=== PATIENT | male | born 1940 | race Caucasian/White ===

== ENCOUNTER 2020-12-10 09:33 | Outpatient (REF) | payer MEDICARE, SELFPAY ==
[2020-12-10 11:31] LABS: Estimated Average Glucose 114 mg/dL; Hemoglobin A1c % 5.6 %
[2020-12-10 11:50] LABS: Alanine Aminotransferase 10 U/L (0-40); Alkaline Phosphatase 82 U/L (39-117); Anion Gap 14 (12-20); Aspartate Amino Transferase 20 U/L (5-37); Bilirubin Total 1.1 mg/dL (0.0-1.0); Blood Urea Nitrogen 19 mg/dL (9-16); Calcium 8.8 mg/dL (8.4-10.2); Carbon Dioxide 25 mmol/L (22-29); Chloride 107 mmol/L (96-108); Estimated Glomerular Filt Rate > 60; Glucose Fasting 109 mg/dL (60-99); Potassium 4.1 mmol/L (3.3-5.1); Sodium 142 mmol/L (135-145); Total Protein 7.2 g/dL (6.5-8.0)
[2020-12-10 12:02] LABS: Prostate Specific Antigen Scr < 0.05 ng/mL (<0.05-4.0)
== END 2020-12-10 09:34 | disposition home or self-care (01) ==
LOC: HO.HMGCLDS 09:33
PROVIDERS: PCP Internal Medicine; Visit Provider Internal Medicine
DX: I10 Essential (primary) hypertension (principal); E78.2 Mixed hyperlipidemia; R73.9 Hyperglycemia, unspecified; E53.8 Deficiency of other specified B group vitamins
CPT/HCPCS: 36415; 80053; 83036; 84153

== ENCOUNTER 2021-03-22 09:43 | Outpatient (REF) | payer MEDICARE, SELFPAY ==
[2021-03-22 12:12] LABS: Folate 19.9 ng/mL (> or = 4.0); Vitamin B12 480 pg/mL (200-900)
== END 2021-03-22 09:44 | disposition home or self-care (01) ==
LOC: HO.HMGCLDS 09:43
PROVIDERS: PCP Internal Medicine; Visit Provider Internal Medicine
DX: E53.8 Deficiency of other specified B group vitamins (principal)
CPT/HCPCS: 36415; 82607; 82746

== ENCOUNTER 2021-03-25 14:13 | Outpatient (REF) | payer MEDICARE, SELFPAY ==
--- NOTE | ~2021-03-25 | XR_ITS ---
EXAMINATION: XR ABDOMEN COMPLETE CLINICAL INDICATION: Abdominal pain COMPARISON: None TECHNIQUE: Supine and upright views of the abdomen and pelvis FINDINGS: There are no dilated loops of bowel or air-fluid levels to suggest obstruction. There is no evidence of free air. There are no calcifications in the abdomen or pelvis. There are surgical clips in the pelvis. Bony structures are unremarkable. XR/XR abdomen min 2V IMPRESSION: Surgical clips in the pelvis. No evidence of obstruction or free air.
[2021-03-25 16:28] LABS: Hematocrit 41.6 % (42-52); Hemoglobin 13.6 g/dl (14.0-18.0); Mean Corpuscular HGB Conc 32.7 g/dl (31.0-36.0); Mean Corpuscular Hemoglobin 30.3 pg (27.0-33.0); Mean Corpuscular Volume 92.7 fL (80-98); Mean Platelet Volume 11.9 fL (9.4-12.4); Platelet Count 249 X10*3/uL (160-400); Red Blood Count 4.49 X10*6/uL (4.60-5.80); Red Cell Distribution Width 11.7 % (11.0-16.0); White Blood Count 9.5 X10*3/uL (4.8-10.8)
[2021-03-25 16:29] LABS: Appearance Urine CLEAR; Color Urine YELLOW; Glucose Urine UA NEG (NEG); Leukocyte Esterase Urine NEG (NEG); Nitrite Urine NEG (NEG); Urine Blood NEG (NEG); Urine Ketones NEG (NEG); Urine Protein NEG (NEG-TRACE)
[2021-03-25 16:54] LABS: Anion Gap 13 (12-20); Blood Urea Nitrogen 23 mg/dL (9-16); Calcium 8.9 mg/dL (8.4-10.2); Carbon Dioxide 25 mmol/L (22-29); Chloride 110 mmol/L (96-108); Estimated Glomerular Filt Rate 46; Glucose Random 93 mg/dL (60-115); Potassium 4.4 mmol/L (3.3-5.1); Sodium 144 mmol/L (135-145)
== END 2021-03-25 14:14 | disposition home or self-care (01) ==
LOC: HO.HMGCX 14:13
PROVIDERS: PCP Internal Medicine; Visit Provider Internal Medicine
DX: R10.9 Unspecified abdominal pain (principal)
CPT/HCPCS: 36415; 74019; 80048; 81003; 85027

== ENCOUNTER 2021-04-01 09:30 | Outpatient (REF) | payer MEDICARE, SELFPAY ==
[2021-04-01 11:51] LABS: Anion Gap 13 (12-20); Blood Urea Nitrogen 15 mg/dL (9-16); Calcium 9.2 mg/dL (8.4-10.2); Carbon Dioxide 27 mmol/L (22-29); Chloride 110 mmol/L (96-108); Estimated Glomerular Filt Rate 48; Glucose Random 109 mg/dL (60-115); Potassium 4.5 mmol/L (3.3-5.1); Sodium 145 mmol/L (135-145)
== END 2021-04-01 09:31 | disposition home or self-care (01) ==
LOC: HO.HMGCLDS 09:30
PROVIDERS: PCP Internal Medicine; Visit Provider Internal Medicine
DX: R10.9 Unspecified abdominal pain (principal)
CPT/HCPCS: 36415; 80048

== ENCOUNTER 2021-04-22 09:24 | Outpatient (REF) | payer MEDICARE, SELFPAY ==
[2021-04-22 11:14] LABS: Hematocrit 41.2 % (42-52); Hemoglobin 13.2 g/dl (14.0-18.0); Mean Corpuscular Hemoglobin 30.1 pg (27.0-33.0); Mean Corpuscular Volume 94.1 fL (80-98); Mean Platelet Volume 11.2 fL (9.4-12.4); Platelet Count 212 X10*3/uL (160-400); Red Blood Count 4.38 X10*6/uL (4.60-5.80); Red Cell Distribution Width 12.6 % (11.0-16.0); White Blood Count 6.3 X10*3/uL (4.8-10.8)
[2021-04-22 11:46] LABS: Alanine Aminotransferase 6 U/L (0-40); Albumin Level 3.7 g/dL (3.5-5.0); Alkaline Phosphatase 77 U/L (39-117); Anion Gap 12 (12-20); Aspartate Amino Transferase 15 U/L (5-37); Bilirubin Total 0.8 mg/dL (0.0-1.0); Blood Urea Nitrogen 13 mg/dL (9-16); Calcium 9.1 mg/dL (8.4-10.2); Carbon Dioxide 29 mmol/L (22-29); Chloride 109 mmol/L (96-108); Cholesterol 110 mg/dL; Estimated Glomerular Filt Rate 57; Glucose Fasting 108 mg/dL (60-99); HDL Cholesterol 43 mg/dL; LDL Cholesterol Calculated 55 mg/dl; Potassium 5.2 mmol/L (3.3-5.1); Sodium 145 mmol/L (135-145); Total Protein 6.7 g/dL (6.5-8.0); Triglycerides 61 mg/dL
[2021-04-22 12:09] LABS: Folate 15.1 ng/mL (> or = 4.0); Vitamin B12 404 pg/mL (200-900)
== END 2021-04-22 09:25 | disposition home or self-care (01) ==
LOC: HO.HMGCLDS 09:24
PROVIDERS: PCP Internal Medicine; Visit Provider Internal Medicine
DX: E53.8 Deficiency of other specified B group vitamins (principal); E78.2 Mixed hyperlipidemia; I10 Essential (primary) hypertension; R73.9 Hyperglycemia, unspecified
CPT/HCPCS: 36415; 80053; 80061; 82607; 82746; 85027

== ENCOUNTER 2021-06-29 14:21 | Outpatient (REF) | payer MEDICARE, SELFPAY ==
[2021-06-29 16:46] LABS: Alanine Aminotransferase 9 U/L (0-40); Alkaline Phosphatase 85 U/L (39-117); Anion Gap 12 (12-20); Aspartate Amino Transferase 18 U/L (5-37); Bilirubin Total 0.5 mg/dL (0.0-1.0); Blood Urea Nitrogen 18 mg/dL (9-16); Calcium 9.2 mg/dL (8.4-10.2); Carbon Dioxide 27 mmol/L (22-29); Chloride 107 mmol/L (96-108); Estimated Glomerular Filt Rate > 60; Glucose Random 79 mg/dL (60-115); Potassium 4.8 mmol/L (3.3-5.1); Sodium 141 mmol/L (135-145); Total Protein 7.1 g/dL (6.5-8.0)
[2021-06-29 17:20] LABS: Vitamin B12 384 pg/mL (200-900)
== END 2021-06-29 14:22 | disposition home or self-care (01) ==
LOC: HO.HMGCLDS 14:21
PROVIDERS: PCP Internal Medicine; Visit Provider Internal Medicine
DX: E53.8 Deficiency of other specified B group vitamins (principal); E78.2 Mixed hyperlipidemia; I10 Essential (primary) hypertension; R73.9 Hyperglycemia, unspecified
CPT/HCPCS: 36415; 80053; 82607; 82746

== ENCOUNTER 2021-11-29 11:21 | Outpatient (REF) | payer MEDICARE, SELFPAY ==
[2021-11-29 14:01] LABS: Hematocrit 48.5 % (42.0-52.0); Hemoglobin 15.6 g/dl (14.0-18.0); Mean Corpuscular HGB Conc 32.2 g/dl (31.0-36.0); Mean Corpuscular Volume 93.3 fL (80.0-98.0); Mean Platelet Volume 11.7 fL (9.4-12.4); Platelet Count 203 X10*3/uL (160-400); Red Cell Distribution Width 12.2 % (11.0-16.0); White Blood Count 9.1 X10*3/uL (4.8-10.8)
[2021-11-29 14:12] LABS: Alanine Aminotransferase 8 U/L (0-40); Alkaline Phosphatase 80 U/L (39-117); Anion Gap 13 (12-20); Aspartate Amino Transferase 18 U/L (5-37); Bilirubin Total 0.9 mg/dL (0.0-1.0); Blood Urea Nitrogen 18 mg/dL (9-16); Calcium 9.3 mg/dL (8.4-10.2); Carbon Dioxide 28 mmol/L (22-29); Chloride 104 mmol/L (96-108); Cholesterol 113 mg/dL; Estimated Glomerular Filt Rate 56; Glucose Fasting 117 mg/dL (60-99); HDL Cholesterol 38 mg/dL; LDL Cholesterol Calculated 62 mg/dl; Potassium 5.6 mmol/L (3.3-5.1); Sodium 139 mmol/L (135-145); Total Protein 7.3 g/dL (6.5-8.0); Triglycerides 67 mg/dL
[2021-11-29 14:37] LABS: Prostate Specific Antigen Scr < 0.05 ng/mL (<0.05-4.0)
[2021-11-29 15:12] LABS: Vitamin B12 406 pg/mL (200-900)
== END 2021-11-29 11:22 | disposition home or self-care (01) ==
LOC: HO.HMGCLDS 11:21
PROVIDERS: PCP Internal Medicine; Visit Provider Internal Medicine
DX: Z00.00 Encounter for general adult medical examination without abnormal findings (principal); Z12.5 Encounter for screening for malignant neoplasm of prostate; E53.8 Deficiency of other specified B group vitamins; R73.9 Hyperglycemia, unspecified; E78.2 Mixed hyperlipidemia; I10 Essential (primary) hypertension; E87.5 Hyperkalemia; C61 Malignant neoplasm of prostate
CPT/HCPCS: 36415; 80053; 80061; 82607; 84153; 85027

== ENCOUNTER 2021-12-02 13:27 | Outpatient (REF) | payer MEDICARE, SELFPAY ==
[2021-12-02 16:30] LABS: Potassium 4.7 mmol/L (3.3-5.1)
[2021-12-02 17:09] LABS: Vitamin B12 381 pg/mL (200-900)
== END 2021-12-02 13:28 | disposition home or self-care (01) ==
LOC: HO.HMGCLDS 13:27
PROVIDERS: Visit Provider Internal Medicine
DX: E87.5 Hyperkalemia (principal); E53.8 Deficiency of other specified B group vitamins; R73.9 Hyperglycemia, unspecified; E78.2 Mixed hyperlipidemia; I10 Essential (primary) hypertension
CPT/HCPCS: 36415; 82607; 84132

== ENCOUNTER 2022-07-04 11:49 | Outpatient (REF) | payer MEDICARE, SELFPAY ==
[2022-07-04 14:15] LABS: MANUAL DIFF FLAG NO
[2022-07-04 14:25] LABS: Basophils Percent Auto 0.4 % (0-2); Eosinophils Absolute Auto 0.1 X10*3/uL (0.0-0.4); Eosinophils Percent Auto 2.1 % (0-4); Hematocrit 46.5 % (42.0-52.0); Hemoglobin 15.1 g/dl (14.0-18.0); Imm Gran Abs Auto 0.02 X10*3/uL (0.00-0.03); Imm Gran Pct Auto 0.3 % (0.0-0.4); Lymphocytes Absolute Auto 1.6 X10*3/uL (1.2-4.9); Lymphocytes Percent Auto 23.5 % (20-40); Mean Corpuscular HGB Conc 32.5 g/dl (31.0-36.0); Mean Corpuscular Hemoglobin 30.3 pg (27.0-33.0); Mean Corpuscular Volume 93.2 fL (80.0-98.0); Mean Platelet Volume 11.7 fL (9.4-12.4); Monocytes Absolute Auto 0.6 X10*3/uL (0.1-1.2); Monocytes Percent Auto 8.9 % (2-11); Neutrophils Absolute Auto 4.4 x10*3/uL (2.0-8.3); Neutrophils Percent Auto 64.8 % (45-73); Platelet Count 179 X10*3/uL (160-400); Red Blood Count 4.99 X10*6/uL (4.60-5.80); Red Cell Distribution Width 12.1 % (11.0-16.0); White Blood Count 6.8 X10*3/uL (4.8-10.8)
[2022-07-04 14:46] LABS: Estimated Average Glucose 114 mg/dL; Hemoglobin A1c % 5.6 %
[2022-07-04 14:50] LABS: Alanine Aminotransferase 7 U/L (0-40); Alkaline Phosphatase 75 U/L (39-117); Anion Gap 15 (12-20); Aspartate Amino Transferase 18 U/L (5-37); Blood Urea Nitrogen 16 mg/dL (9-16); Carbon Dioxide 26 mmol/L (22-29); Chloride 105 mmol/L (96-108); Cholesterol 108 mg/dL; Estimated Glomerular Filt Rate > 60; Glucose Fasting 104 mg/dL (60-99); HDL Cholesterol 43 mg/dL; LDL Cholesterol Calculated 52 mg/dl; Potassium 4.9 mmol/L (3.3-5.1); Sodium 141 mmol/L (135-145); Total Protein 6.9 g/dL (6.5-8.0); Triglycerides 68 mg/dL
[2022-07-04 15:25] LABS: PSA,Total (Free>4and<10) < 0.05 ng/mL (0.00-4.00); TSH reflex Free T4 1.72 uIU/mL (0.32-4.0)
[2022-07-04 15:34] LABS: Folate 19.7 ng/mL (> or = 4.0); Vitamin B12 365 pg/mL (200-900)
== END 2022-07-04 11:50 | disposition home or self-care (01) ==
LOC: HO.HMGCLDS 11:49
PROVIDERS: PCP Internal Medicine; Visit Provider Internal Medicine
DX: Z12.5 Encounter for screening for malignant neoplasm of prostate (principal); E53.8 Deficiency of other specified B group vitamins; E78.2 Mixed hyperlipidemia; R73.9 Hyperglycemia, unspecified; R63.4 Abnormal weight loss; C61 Malignant neoplasm of prostate; I10 Essential (primary) hypertension
CPT/HCPCS: 36415; 80053; 80061; 82607; 82746; 83036; 84153; 84443; 85025

== ENCOUNTER 2022-09-30 09:43 | Outpatient (REF) | payer MEDICARE, SELFPAY ==
[2022-09-30 11:09] LABS: MANUAL DIFF FLAG NO
[2022-09-30 11:15] LABS: Basophils Percent Auto 0.4 % (0-2); Eosinophils Absolute Auto 0.2 X10*3/uL (0.0-0.4); Eosinophils Percent Auto 2.6 % (0-4); Hematocrit 45.8 % (42.0-52.0); Hemoglobin 15.1 g/dl (14.0-18.0); Imm Gran Abs Auto 0.02 X10*3/uL (0.00-0.03); Imm Gran Pct Auto 0.3 % (0.0-0.4); Lymphocytes Absolute Auto 2.4 X10*3/uL (1.2-4.9); Lymphocytes Percent Auto 31.3 % (20-40); Mean Corpuscular Hemoglobin 30.3 pg (27.0-33.0); Mean Platelet Volume 11.5 fL (9.4-12.4); Monocytes Absolute Auto 0.7 X10*3/uL (0.1-1.2); Monocytes Percent Auto 8.7 % (2-11); Neutrophils Absolute Auto 4.3 x10*3/uL (2.0-8.3); Neutrophils Percent Auto 56.7 % (45-73); Platelet Count 174 X10*3/uL (160-400); Red Blood Count 4.98 X10*6/uL (4.60-5.80); Red Cell Distribution Width 12.2 % (11.0-16.0); White Blood Count 7.7 X10*3/uL (4.8-10.8)
== END 2022-09-30 09:44 | disposition home or self-care (01) ==
LOC: HO.HMGCLDS 09:43
PROVIDERS: PCP Internal Medicine; Visit Provider Internal Medicine
DX: Z13.89 Encounter for screening for other disorder (principal)
CPT/HCPCS: 36415; 85025

== ENCOUNTER 2023-02-13 09:20 | Outpatient (REF) | payer MEDICARE, SELFPAY ==
[2023-02-13 11:16] LABS: MANUAL DIFF FLAG NO
[2023-02-13 11:40] LABS: Basophils Percent Auto 0.5 % (0-2); Eosinophils Absolute Auto 0.2 X10*3/uL (0.0-0.4); Eosinophils Percent Auto 2.4 % (0-4); Hematocrit 46.3 % (42.0-52.0); Hemoglobin 14.8 g/dl (14.0-18.0); Imm Gran Abs Auto 0.02 X10*3/uL (0.00-0.03); Imm Gran Pct Auto 0.3 % (0.0-0.4); Lymphocytes Percent Auto 26.4 % (20-40); Mean Corpuscular Hemoglobin 29.8 pg (27.0-33.0); Mean Corpuscular Volume 93.2 fL (80.0-98.0); Mean Platelet Volume 11.6 fL (9.4-12.4); Monocytes Absolute Auto 0.7 X10*3/uL (0.1-1.2); Monocytes Percent Auto 9.4 % (2-11); Neutrophils Absolute Auto 4.6 x10*3/uL (2.0-8.3); Platelet Count 168 X10*3/uL (160-400); Red Blood Count 4.97 X10*6/uL (4.60-5.80); Red Cell Distribution Width 12.3 % (11.0-16.0); White Blood Count 7.6 X10*3/uL (4.8-10.8)
[2023-02-13 12:08] LABS: Alanine Aminotransferase 10 U/L (0-40); Albumin Level 3.8 g/dL (3.5-5.0); Alkaline Phosphatase 77 U/L (39-117); Anion Gap 11 (12-20); Aspartate Amino Transferase 20 U/L (5-37); Bilirubin Total 0.7 mg/dL (0.0-1.0); Blood Urea Nitrogen 18 mg/dL (9-16); Calcium 8.8 mg/dL (8.4-10.2); Carbon Dioxide 28 mmol/L (22-29); Chloride 108 mmol/L (96-108); Estimated Glomerular Filt Rate > 60; Glucose Random 119 mg/dL (60-115); Sodium 142 mmol/L (135-145); Total Protein 6.6 g/dL (6.5-8.0)
[2023-02-13 12:36] LABS: Folate 19.3 ng/mL (> or = 4.0); Vitamin B12 347 pg/mL (200-900)
== END 2023-02-13 09:21 | disposition home or self-care (01) ==
LOC: HO.HMGCLDS 09:20
PROVIDERS: PCP Internal Medicine; Visit Provider Internal Medicine
DX: E53.8 Deficiency of other specified B group vitamins (principal); E78.2 Mixed hyperlipidemia; I10 Essential (primary) hypertension
CPT/HCPCS: 36415; 80053; 82607; 82746; 85025

== ENCOUNTER 2023-04-16 09:15 | Outpatient (AMB) | payer MEDICARE, SELFPAY ==
[2023-04-16 09:29] VITALS: BP 126/74; PULSE 58; O2SAT 98; BMI 23.0
--- NOTE | 2023-04-16 09:29 | A.OFFPC_ITS ---
Vital Signs 04/16/23 09:29 Height 5 ft 8.9 in Weight 155 lb 2 oz BMI 23.0 BP 126/74 Blood Pressure Location Rt brachial Position Sitting Pulse 58 Pulse Source Pulse Oximeter Pulse Oximetry (%) 98 Oxygen Delivery Method Room Air Intake Visit Reasons: R ear discomfort on going issue Allergies No Known Allergies Allergy (Verified 04/16/23 09:30) Medication List - Last Reconciled 04/16/23 by Aretha Pope MD atorvastatin 80 mg PO DAILY lisinopril 10 mg PO DAILY metoprolol succinate ER 50 mg PO DAILY pantoprazole 40 mg PO DAILY tamsulosin 0.4 mg PO BID Tobacco use date assessed: 04/16/23 Last assessed Fall Risk: 04/16/23 Dental Screening Dental Screen Date: 04/16/23 Did you have a dental problem in the last 6 months where you did not have access to dental care?: No Was dental information given to patient?: No HPI R ear discomfort on going issue HPI Details Pt c/o R ear discomfort and feeling of blocked ear for 2 weeks. Pt noti damon some brown discharge from R ear canal. Pt denies fever, chills PFSH Medical History Abdominal pain Annual physical exam Carotid stenosis, bilateral DJD (degenerative joint disease) Hyperglycemia Hyperkalemia Hyperlipidemia LLQ abdominal pain Prostate cancer Surgical History H/O colonoscopy H/O prostatectomy History of esophagogastroduodenoscopy (EGD) Social History Housing: House Alcohol intake: current Alcohol intake frequency: holidays/special occasions only Patient Tobacco Use Status: Never used Tobacco e-Cigarette/Vaping Use: Never Used Second Hand Smoke Exposure: No service: No Current occupational status: retired Cognitive needs: No Hearing needs: No Vision needs: Yes Questionnaire Thrive Questionnaire Date Thrive assessed: 10/03/22 AUDIT C Alcohol Use Questionnaire (AUDIT-C) 1. How often do you have a drink containing alcohol?: Never 3. How often do you have six or more drinks on one occasion?: Never Total Score: 0 Score Reviewed/Action Taken: Yes CARMELLA-7 AMB Questionnaire CARMELLA-7 Date CARMELLA - 7 assessed: 10/03/22 Source: Developed by Drs. Silas Martinez, Gabriela Maria, Jose F Sorenson and colleagues, with an educational kiersten from [employer]. Review of Systems Const All systems reviewed & are unremarkable except as noted in HPI and below Reports no additional complaints Eyes Reports no additional complaints ENT Reports no additional complaints Card Reports no additional complaints Resp Reports no additional complaints GI Reports no additional complaints Physical exam (Primary Care) Vital Signs: Last Vital Signs Pulse 58 04/16/23 09:29 BP 126/74 04/16/23 09:29 Pulse Ox 98 04/16/23 09:29 Oxygen Delivery Method Room Air 04/16/23 09:29 BMI result Body Mass Index 23.0 Tobacco/Smoking Status: Tobacco use Status Tobacco use date assessed 04/16/23 04/16/23 09:31 Patient Tobacco Use Status Never used Tobacco 04/16/23 09:31 e-Cigarette/Vaping Use Never Used 04/16/23 09:31 Thrive Assessment: Date of Thrive Assessment Date Thrive assessed 10/03/22 04/16/23 09:31 Const General: no acute distress HENMT Head: Yes normal to inspection Ears: hearing grossly normal bilaterally, TM's normal bilaterally and no periauricular adenopathy Face and sinus: Yes normal facial exam Throat: Yes posterior oropharynx normal Neck Neck: Yes supple Resp Effort & Inspection: normal respiratory effort Auscultation: clear to auscultation bilaterally Cardio Rhythm: regular rhythm Heart sounds: S1 normal heart sound present and S2 normal heart sound present Assessment and Plan Assessment & Plan (1) Impacted cerumen of right ear: Code(s): H61.21 - Impacted cerumen, right ear Plan: Ear lavage performed Medications: New Cipro HC 0.2-1 % (ciprofloxacin-hydrocortisone) to R ear 3 drps otic (ears) BID 10 mL 0RF NS Coding Level of Care Code Est Pt Level 3 (42887) Diagnoses Impacted cerumen of right ear H61.21
== END 2023-04-16 10:19 | disposition home or self-care (01) ==
PROVIDERS: PCP Internal Medicine; Visit Provider Internal Medicine
DX: H61.21 Impacted cerumen, right ear (principal)
CPT/HCPCS: 99213

== ENCOUNTER 2023-08-01 08:47 | Outpatient (REF) | payer MEDICARE, SELFPAY ==
[2023-08-01 11:49] LABS: Alanine Aminotransferase 9 U/L (0-40); Albumin Level 3.7 g/dL (3.5-5.0); Alkaline Phosphatase 74 U/L (39-117); Anion Gap 10 (12-20); Aspartate Amino Transferase 23 U/L (5-37); Bilirubin Total 0.8 mg/dL (0.0-1.0); Blood Urea Nitrogen 16 mg/dL (9-16); Calcium 8.7 mg/dL (8.4-10.2); Carbon Dioxide 28 mmol/L (22-29); Chloride 108 mmol/L (96-108); Cholesterol 156 mg/dL (<200); Estimated Glomerular Filt Rate > 60; Glucose Fasting 100 mg/dL (60-99); HDL Cholesterol 48 mg/dL (>40); LDL Cholesterol Calculated 96 mg/dL (<100); Potassium 4.2 mmol/L (3.3-5.1); Sodium 142 mmol/L (135-145); Total Protein 6.6 g/dL (6.5-8.0); Triglycerides 63 mg/dL (<150)
[2023-08-01 12:12] LABS: Folate 14.8 ng/mL (> or = 4.0); Vitamin B12 657 pg/mL (200-900)
[2023-08-01 12:13] LABS: Estimated Average Glucose 108 mg/dL; Hemoglobin A1c % 5.4 % (<6.0)
== END 2023-08-01 08:48 | disposition home or self-care (01) ==
LOC: HO.HMGCLDS 08:47
PROVIDERS: PCP Internal Medicine; Visit Provider Internal Medicine
DX: Z00.00 Encounter for general adult medical examination without abnormal findings (principal); I10 Essential (primary) hypertension; E53.8 Deficiency of other specified B group vitamins; R73.9 Hyperglycemia, unspecified
CPT/HCPCS: 36415; 80053; 80061; 82607; 82746; 83036

== ENCOUNTER 2023-08-03 10:16 | Outpatient (AMB) | payer MEDICARE, SELFPAY ==
[2023-08-03 10:28] VITALS: BP 120/80; PULSE 54; O2SAT 99; BMI 23.0
--- NOTE | 2023-08-03 10:28 | A.OFFPC_ITS ---
Vital Signs 08/03/23 10:28 Height 5 ft 8.9 in Weight 155 lb BMI 23.0 BP 120/80 Blood Pressure Location Lt brachial Position Sitting Pulse 54 Pulse Source Pulse Oximeter Pulse Oximetry (%) 99 Oxygen Delivery Method Room Air Intake Visit Reasons: Physical exam Intake Note: Pt is here today for his PE Allergies No Known Allergies Allergy (Verified 04/16/23 09:30) Medication List - Last Reconciled 08/03/23 by Aretha Pope MD atorvastatin 80 mg PO DAILY ciprofloxacin-dexamethasone 0.3-0.1 % 4 drps otic (ears) BID lisinopril 10 mg PO DAILY metoprolol succinate ER 50 mg PO DAILY pantoprazole 40 mg PO DAILY tamsulosin 0.4 mg PO BID Tobacco use date assessed: 08/03/23 HPI Physical exam HPI Details Pt presents for PE PFSH Medical History Abdominal pain Annual physical exam Carotid stenosis, bilateral DJD (degenerative joint disease) Hyperglycemia Hyperkalemia Hyperlipidemia LLQ abdominal pain Prostate cancer Surgical History History of esophagogastroduodenoscopy (EGD) H/O colonoscopy H/O prostatectomy Social History Housing: House Alcohol intake: current Alcohol intake frequency: holidays/special occasions only Patient Tobacco Use Status: Never used Tobacco e-Cigarette/Vaping Use: Never Used Second Hand Smoke Exposure: No service: No Current occupational status: retired Cognitive needs: No Hearing needs: No Vision needs: Yes Questionnaire Thrive Questionnaire Date Thrive assessed: 10/03/22 CARMELLA-7 AMB Questionnaire CARMELLA-7 Date CARMELLA - 7 assessed: 10/03/22 Source: Developed by Drs. Silas Martinez, Gabriela Maria, Jose F Sorenson and colleagues, with an educational kiersten from [employer]. Review of Systems Const All systems reviewed & are unremarkable except as noted in HPI and below Reports no additional complaints Eyes Reports no additional complaints ENT Reports no additional complaints Card Reports no additional complaints Resp Reports no additional complaints GI Reports no additional complaints Physical exam (Primary Care) Vital Signs: Last Vital Signs Pulse 47 L 08/03/23 10:28 BP 162/80 H 08/03/23 10:28 Pulse Ox 99 08/03/23 10:28 Oxygen Delivery Method Room Air 08/03/23 10:28 BMI result Body Mass Index 23.0 Tobacco/Smoking Status: Tobacco use Status Tobacco use date assessed 08/03/23 08/03/23 10:34 Patient Tobacco Use Status Never used Tobacco 08/03/23 10:29 e-Cigarette/Vaping Use Never Used 08/03/23 10:29 Thrive Assessment: Date of Thrive Assessment Date Thrive assessed 10/03/22 08/03/23 10:29 Const General: no acute distress HENMT Ears: hearing grossly normal bilaterally Mouth: Normal oral and palatal mucosa present Throat: Yes posterior oropharynx normal Neck Neck: Yes no lymphadenopathy and Yes supple Resp Effort & Inspection: normal respiratory effort Auscultation: clear to auscultation bilaterally Cardio Rhythm: regular rhythm Heart sounds: S1 normal heart sound present and S2 normal heart sound present GI Inspection: Yes normal to inspection Palpation (GI): Soft to palpation Percussion: Yes normal to percussion Auscultation: normal bowel sounds Assessment and Plan Assessment & Plan (1) PVD (peripheral vascular disease): Comment: F/U with [facility] annually Code(s): I73.9 - Peripheral vascular disease, unspecified (2) Annual physical exam: Code(s): Z00.00 - Encounter for general adult medical examination without abnormal findings Plan: Well-balanced diet regular physical activity discussed with the patient. He will follow-up in 6 months (3) Essential hypertension: Code(s): I10 - Essential (primary) hypertension Plan: Continue current medications (4) Mixed hyperlipidemia: Code(s): E78.2 - Mixed hyperlipidemia Plan: Continue statin (5) Hyperglycemia: Code(s): R73.9 - Hyperglycemia, unspecified Plan: follow ADA diet Orders: Orders Comprehensive [place]. Panel Fast 6 Months E78.2 - Mixed hyperlipidemia, I10 - Essential (primary) hypertension, R73.9 - Hyperglycemia, unspecified, Z00.00 - Encounter for general adult medical examination without abnormal findings Lipid Panel 6 Months E78.2 - Mixed hyperlipidemia, I10 - Essential (primary) hypertension, R73.9 - Hyperglycemia, unspecified, Z00.00 - Encounter for general adult medical examination without abnormal findings Complete Blood Count Auto Diff 6 Months E78.2 - Mixed hyperlipidemia, I10 - Essential (primary) hypertension, R73.9 - Hyperglycemia, unspecified, Z00.00 - Encounter for general adult medical examination without abnormal findings Vitamin B12 and Folate 6 Months E78.2 - Mixed hyperlipidemia, I10 - Essential (primary) hypertension, R73.9 - Hyperglycemia, unspecified, Z00.00 - Encounter for general adult medical examination without abnormal findings Referrals Vascular Surgery Referral I73.9 - Peripheral vascular disease, unspecified Medications: Refilled metoprolol succinate ER 50 mg PO DAILY 90 tabs 3RF pantoprazole 40 mg PO DAILY 90 tabs 3RF I10 - Essential (primary) hypertension atorvastatin 80 mg PO DAILY 90 tabs 3RF E78.2 - Mixed hyperlipidemia lisinopril 10 mg PO DAILY 90 tabs 3RF Coding Level of Care Code Est Pt Prev Care >65y(68856) Diagnoses PVD (peripheral vascular disease) I73.9 Annual physical exam Z00.00 Essential hypertension I10 Mixed hyperlipidemia E78.2 Hyperglycemia R73.9
== END 2023-08-03 11:26 | disposition home or self-care (01) ==
LOC: HO.HMGC 10:16
PROVIDERS: PCP Internal Medicine; Visit Provider Internal Medicine
DX: I73.9 Peripheral vascular disease, unspecified (principal); Z00.00 Encounter for general adult medical examination without abnormal findings; I10 Essential (primary) hypertension; E78.2 Mixed hyperlipidemia; R73.9 Hyperglycemia, unspecified
CPT/HCPCS: 99397

== ENCOUNTER 2024-01-30 09:35 | Outpatient (REF) | payer MEDICARE, SELFPAY ==
[2024-01-30 13:24] LABS: MANUAL DIFF FLAG NO
[2024-01-30 13:28] LABS: Basophils Percent Auto 0.4 % (0-2); Eosinophils Absolute Auto 0.1 X10*3/uL (0.0-0.4); Eosinophils Percent Auto 1.3 % (0-4); Hematocrit 46.2 % (42.0-52.0); Imm Gran Abs Auto 0.04 X10*3/uL (0.00-0.03); Imm Gran Pct Auto 0.4 % (0.0-0.4); Lymphocytes Absolute Auto 2.1 X10*3/uL (1.2-4.9); Lymphocytes Percent Auto 21.3 % (20-40); Mean Corpuscular HGB Conc 32.5 g/dl (31.0-36.0); Mean Corpuscular Hemoglobin 30.1 pg (27.0-33.0); Mean Corpuscular Volume 92.8 fL (80.0-98.0); Mean Platelet Volume 10.8 fL (9.4-12.4); Monocytes Absolute Auto 0.8 X10*3/uL (0.1-1.2); Monocytes Percent Auto 8.2 % (2-11); Neutrophils Absolute Auto 6.6 x10*3/uL (2.0-8.3); Neutrophils Percent Auto 68.4 % (45-73); Platelet Count 195 X10*3/uL (160-400); Red Blood Count 4.98 X10*6/uL (4.60-5.80); Red Cell Distribution Width 12.6 % (11.0-16.0); White Blood Count 9.7 X10*3/uL (4.8-10.8)
[2024-01-30 13:47] LABS: Alanine Aminotransferase 9 U/L (0-40); Alkaline Phosphatase 83 U/L (39-117); Anion Gap 13 (12-20); Aspartate Amino Transferase 21 U/L (5-37); Blood Urea Nitrogen 12 mg/dL (9-16); Calcium 9.1 mg/dL (8.4-10.2); Carbon Dioxide 27 mmol/L (22-29); Chloride 109 mmol/L (96-108); Cholesterol 132 mg/dL (<200); Estimated Glomerular Filt Rate > 60; Glucose Fasting 107 mg/dL (60-99); HDL Cholesterol 50 mg/dL (>40); LDL Cholesterol Calculated 70 mg/dL (<100); Potassium 4.6 mmol/L (3.3-5.1); Sodium 144 mmol/L (135-145); Total Protein 7.1 g/dL (6.5-8.0); Triglycerides 60 mg/dL (<150)
[2024-01-30 14:08] LABS: Folate 16.4 ng/mL (> or = 4.0); Vitamin B12 659 pg/mL (200-900)
== END 2024-01-30 09:36 | disposition home or self-care (01) ==
LOC: HO.HMGCLDS 09:35
PROVIDERS: PCP Internal Medicine; Visit Provider Internal Medicine
DX: Z00.00 Encounter for general adult medical examination without abnormal findings (principal); I10 Essential (primary) hypertension; E78.2 Mixed hyperlipidemia; R73.9 Hyperglycemia, unspecified
CPT/HCPCS: 36415; 80053; 80061; 82607; 82746; 85025

== ENCOUNTER 2024-02-01 10:59 | Outpatient (AMB) | payer MEDICARE, SELFPAY ==
[2024-02-01 11:48] VITALS: BP 136/82; PULSE 52; O2SAT 97; BMI 22.8
--- NOTE | 2024-02-01 11:48 | MHC.PC.OV ---
Vital Signs 02/01/24 11:48 Height 5 ft 8.9 in Weight 154 lb BMI 22.8 BP 136/82 Blood Pressure Location Lt brachial Position Sitting Pulse 52 Pulse Source Pulse Oximeter Pulse Oximetry (%) 97 Oxygen Delivery Method Room Air Intake Visit Reasons: 6 Month F/U Intake Note: Pt is here today for 6 months follow up visit on labs. Allergies No Known Allergies Allergy (Verified 02/01/24 11:59) Medication List - Last Reconciled 02/01/24 by Aretha Pope MD atorvastatin 80 mg PO DAILY ciprofloxacin-dexamethasone 0.3-0.1 % 4 drps otic (ears) BID lisinopril 10 mg PO DAILY metoprolol succinate ER 50 mg PO DAILY pantoprazole 40 mg PO DAILY tamsulosin 0.4 mg PO BID Tobacco use date assessed: 02/01/24 Fall risk assessment: No Falls in past year Last assessed Fall Risk: 02/01/24 Dental Screening Dental Screen Date: 02/01/24 Did you have a dental visit in the last 12 months?: Yes Did you have a dental problem in the last 6 months where you did not have access to dental care?: No Was dental information given to patient?: Patient has dentist HPI 6 Month F/U HPI Details Pt presents for HTN, hyperlipid, stable on meds. Patient follows up with Urology for prostate CA PFSH Medical History Hyperkalemia Annual physical exam LLQ abdominal pain Abdominal pain Hyperlipidemia DJD (degenerative joint disease) Carotid stenosis, bilateral Prostate cancer Hyperglycemia Surgical History History of esophagogastroduodenoscopy (EGD) H/O colonoscopy H/O prostatectomy Social History Housing: House Alcohol intake: current Alcohol intake frequency: holidays/special occasions only Patient Tobacco Use Status: Never used Tobacco e-Cigarette/Vaping Use: Never Used Second Hand Smoke Exposure: No service: No Current occupational status: retired Cognitive needs: No Hearing needs: No Vision needs: Yes Questionnaire PHQ-9 Over the last 2 weeks, how often have you been bothered by any of the following problems? 1. Little interest or pleasure in doing things: not at all 2. Feeling down, depressed, or hopeless: not at all 3. Trouble falling or staying asleep, or sleeping too much: not at all 4. Feeling tired or having little energy: not at all 5. Poor appetite or overeating: not at all 6. Feeling bad about yourself - or that you are a failure or have let yourself or your family down: not at all 7. Trouble concentrating on things, such as reading the newspaper or watching television: not at all 8. Moving or speaking so slowly that other people could have noticed. Or the opposite - being so fidgety or restless that you have been moving around a lot more than usual: not at all 9. Thoughts that you would be better off or of hurting yourself in some way: not at all Total score: 0 Depression Screening Interpretation: Negative Depression Screening Done: Yes Source: Developed by Drs. Silas Martinez, Gabriela Maria, Jose F Sorenson and colleagues, with an educational kiersten from [email or web address]. Thrive Questionnaire Date Thrive assessed: 02/01/24 I am a: Patient What is your living situation today?: I have a steady place to live Within the past 12 months, did the food you bought not last and you didn't have the money to get more?: Never true Within the past 12 months, did you worry whether your food would run out before you got money to buy more?: Never true Do you have trouble paying for medicines?: No Do you have trouble getting transportation to medical appointments?: No Do you have trouble paying your heating and electricity bill?: No Do you have trouble taking care of your child, family member or friend?: No Do you have trouble with day-to-day activities such as bathing, preparing meals, shopping, managing finances, etc.?: No Are you currently unemployed and looking for a job?: No Are you interested in more education?: No Please select the resources that you would like help with: None THRIVE Score: 0 AUDIT C Alcohol Use Questionnaire (AUDIT-C) 1. How often do you have a drink containing alcohol?: Never 3. How often do you have six or more drinks on one occasion?: Never Total Score: 0 CARMELLA-7 AMB Questionnaire CARMELLA-7 Date CARMELLA - 7 assessed: 02/01/24 Feeling nervous, anxious, or on edge: 0 = Not at all Not being able to stop or control worryin = Not at all Worrying too much about different things: 0 = Not at all Trouble relaxin = Not at all Being so restless that it is hard to sit still: 0 = Not at all Becoming easily annoyed or irritable: 0 = Not at all Feeling afraid as if something awful might happen: 0 = Not at all Total CARMELLA-7 score (0-4 normal; 5-9 mild; 10-14 moderate; 15-21 severe): 0 Source: Developed by Drs. Silas Martinez, Gabriela Maria, Jose F Sorenson and colleagues, with an educational kiersten from [email or web address]. Review of Systems Const All systems reviewed & are unremarkable except as noted in HPI and below Reports no additional complaints Eyes Reports no additional complaints ENT Reports no additional complaints Resp Reports no additional complaints GI Reports no additional complaints Reports no additional complaints Physical exam (Primary Care) Vital Signs: Last Vital Signs Pulse 52 02/01/24 11:48 BP 136/82 02/01/24 11:48 Pulse Ox 97 02/01/24 11:48 Oxygen Delivery Method Room Air 02/01/24 11:48 BMI result Body Mass Index 22.8 Tobacco/Smoking Status: Tobacco use Status Tobacco use date assessed 02/01/24 02/01/24 12:00 Patient Tobacco Use Status Never used Tobacco 02/01/24 12:00 e-Cigarette/Vaping Use Never Used 02/01/24 11:48 PHQ-9: PHQ-9 Score PHQ-9: Total score 0 02/01/24 12:28 Depression Screening Interpretation: Negative Thrive Assessment: Date of Thrive Assessment Date Thrive assessed 02/01/24 02/01/24 12:03 Const General: no acute distress HENMT Face and sinus: Yes normal facial exam Eyes General: appearance normal, both eyes and all related structures Neck Neck: Yes supple Resp Effort & Inspection: normal respiratory effort Auscultation: clear to auscultation bilaterally Cardio Rhythm: regular rhythm Heart sounds: S1 normal heart sound present and S2 normal heart sound present GI Inspection: Yes normal to inspection Palpation (GI): Soft to palpation Percussion: Yes normal to percussion Assessment and Plan Assessment & Plan (1) PVD (peripheral vascular disease): Comment: F/U with [facility] Code(s): I73.9 - Peripheral vascular disease, unspecified Plan: Continue high dose of statin follow-up with vascular surgeon (2) Prostate cancer: Comment: s/p prostectomy 2001, undetected PSA level Code(s): C61 - Malignant neoplasm of prostate Plan: Follow-up with urology (3) Essential hypertension: Code(s): I10 - Essential (primary) hypertension Plan: Continue current medications (4) B12 deficiency: Comment: On oral B12 supplement Code(s): E53.8 - Deficiency of other specified B group vitamins Plan: Continue B12 supplement Orders: Orders Comprehensive [place]. Panel Fast 1 Year E78.2 - Mixed hyperlipidemia, I10 - Essential (primary) hypertension, R73.9 - Hyperglycemia, unspecified Lipid Panel 1 Year E78.2 - Mixed hyperlipidemia, I10 - Essential (primary) hypertension, R73.9 - Hyperglycemia, unspecified Vitamin B12 and Folate 1 Year E78.2 - Mixed hyperlipidemia, I10 - Essential (primary) hypertension, R73.9 - Hyperglycemia, unspecified Complete Blood Count Auto Diff 1 Year E78.2 - Mixed hyperlipidemia, I10 - Essential (primary) hypertension, R73.9 - Hyperglycemia, unspecified Coding Level of Care Code Est Pt Level 4 (74279) Diagnoses PVD (peripheral vascular disease) I73.9 Prostate cancer C61 Essential hypertension I10 B12 deficiency E53.8
== END 2024-02-01 14:55 | disposition home or self-care (01) ==
PROVIDERS: PCP Internal Medicine; Visit Provider Internal Medicine
DX: I73.9 Peripheral vascular disease, unspecified (principal); C61 Malignant neoplasm of prostate; I10 Essential (primary) hypertension; E53.8 Deficiency of other specified B group vitamins
CPT/HCPCS: 99214

== ENCOUNTER 2024-10-10 10:03 | Outpatient (REF) | payer MEDICARE, SELFPAY ==
--- OUTSIDE RECORDS SUMMARY | 2024-10-10 11:11 | XMS_ITS | Encounter Summary ---
Author Organization [facility] Address [address] [place] [address] Care Team Providers Care Decorating Inspector Name Role Phone Aretha Pope MD Primary Care Provider [phone] Reason for Referral * Imaging (Routine) - Pending Review Specialty Diagnoses / Procedures Referred By Contac t Referred To Contact Diagnoses PAD (peripheral artery disease) ([facility]) Procedures Vascular US duplex lower extremity arteries bilateral Miranda Zacarias PA [address] [place] [address] [facility] Referral ID Status Reason Start Date Expiration Date V isits Requested Visits Authorized [id number] Pending Review 10/03/2024 10/03/2025 1 1 * Imaging (Routine) - Pending Review Specialty Diagnoses / Procedures Referred By Contac t Referred To Contact Diagnoses Bilateral carotid artery stenosis Procedures Vascular US duplex carotid bilateral Miranda Zacarias PA [address] [place] [address] [facility] Referral ID Status Reason Start Date Expiration Date V isits Requested Visits Authorized [id number] Pending Review 10/03/2024 10/03/2025 1 1 Reason for Visit * Reason Comments Peripheral Vascular Disease Carotid Artery Disease Encounter Details Date Type Department Care Team (Late st Contact Info) Description 10/03/2024 1:00 PM EST Office Visit Vascular Surgery - [place] [address] [place] [address] Miranda Zacarias PA [address] [place] [address] PAD (peripheral artery disease) ([facility]) (Primary Dx); Bilateral carotid artery stenosis Social History Tobacco Use Types Packs/Day Years Used Date Smoking Tobacco: Former Smokeless Tobacco: Never Alcohol Use Standard Drinks/Week Comments Yes 0 (1 standard drink = 0.6 oz pur e alcohol) Sex and Gender Information Value Date Recorded Sex Assigned at Not on file Gender Identity Not on file Sexual Orientation Not on file Job Start Date Occupation Industry Not on file Not on file Not on file documented as of this encounter Last Filed Vital Signs Vital Sign Reading Time Taken Comments Blood Pressure 152/50 10/03/2024 1:09 PM EST Pulse 78 10/03/2024 1:06 PM EST Temperature - - Respiratory Rate 16 10/03/2024 1:06 PM EST Oxygen Saturation - - Inhaled Oxygen Concentration - - Weight 70.2 kg (154 lb 12.8 oz) 10/03/2024 1:06 PM EST Height 167.6 cm (5' 6 ) 10/03/2024 1:06 PM EST Body Mass Index 24.99 10/03/2024 1:06 PM EST documented in this encounter Progress Notes * Christian Lopez MA - 10/03/2024 1:00 PM EST Ben Stone Vascular US duplex carotid bilateral Order# [id number] Reading physician: Amos Angeles MD Ordering provider: BECKI Pedraza Study date: 07/30/24 Patient Information Patient Name Ben Stone Legal Sex Male (84 y.o.) Reason for Exam Priority: Routine Bilateral carotid artery stenosis Dx: Bilateral carotid artery stenosis [I65.23 (ICD-10-CM)] PACS Images Show images for Vascular US duplex carotid bilateral Procedure Curing Machine Operator/Clinician: Brittani Tomlin Supporting Staff: Performing Physician/Midlevel: None Interpretation Summary Show Result ComparisonRIGHT. 1. There is atherosclerotic plaque in the right carotid system as noted below. 2. There is a < 50% stenosis in the right internal carotid artery based on Doppler velocity. 3. The subclavian and vertebral arteries have normal Doppler flow patterns. LEFT. 1. There is atherosclerotic plaque in the left carotid system as noted below. 2. There is a < 50% stenosis in the left internal carotid artery based on Doppler velocity. 3. The subclavian and vertebral arteries have normal Doppler flow patterns. The interpretation of this study was done following the diagnostic criteria recommendations contained in the [employer]AC updated recommendations for carotid stenosis interpretation criteria document published by [employer] in July 2023. Procedure Details A rosado scale, color and doppler analysis ultrasound was performed. During the study longitudinal and transverse views were obtained. Pulsed wave doppler was performed. Overall the study quality was good. Cerebrovascular Findings Right Carotid There is evidence of intimal thickening in the CCA. The ICA has mild heterogeneous eccentric plaque. The ECA has mild heterogeneous plaque. Vertebral flow is antegrade. Left Carotid There is evidence of intimal thickening in the CCA. The ICA has mild heterogeneous plaque. The ECA has mild heterogeneous plaque. There are elevated volocities in the left ECA. Vertebral flow is antegrade. Cerebrovascular Measurements Right PSV Right EDV Left PSV Left EDV CCA Prox 81 cm/s 7 cm/s 80 cm/s 14 cm/s CCA Mid 73 cm/s 9 cm/s 85 cm/s 14 cm/s CCA Dist 85 cm/s 12 cm/s 110 cm/s 20 cm/s ICA Prox 57 cm/s 12 cm/s 95 cm/s 23 cm/s ICA Mid 91 cm/s 25 cm/s 107 cm/s 31 cm/s ICA Dist 72 cm/s 18 cm/s 106 cm/s 35 cm/s ICA/CCA Ratio 1.07 0.97 ECA 184 cm/s 12 cm/s 243 cm/s 21 cm/s Vertebral 55 cm/s 54 cm/s SCL Prox 135 cm/s 170 cm/s All Reviewers List BECKI Roberts on 08/13/2024 11:39 Signed at 0830 [facility] [place] Ben Stone Vascular US duplex lower extremity arteries bilateral with CODIE Order# [id number] Reading physician: Jerry Major MD Ordering provider: BECKI Pedraza Study date: 07/29/24 Patient Information Patient Name Ben Stone Legal Sex Male (84 y.o.) Reason for Exam Priority: Routine PAD (peripheral artery disease) Dx: PAD (peripheral artery disease) ([facility]) [I73.9 (ICD-10-CM)] PACS Images Show images for Vascular US duplex lower extremity arteries bilateral with CODIE Procedure Curing Machine Operator/Clinician: Alicia Wu Supporting Staff: Performing Physician/Midlevel: None Interpretation Summary Show Result Comparison Right mid and distal SFA has 50 to 99% of stenosis. Triple vessel runoff in the right calf. Right CODIE 0.89. Less than 50% stenosis in all arterial segments of the left lower extremity. Triple vessel runoff in the left calf. Left CODIE 0.81. Procedure Details A rosado scale, color and doppler analysis ultrasound was performed. During the study longitudinal views were obtained. Pulsed wave doppler was performed. Lower Extremity Arterial Findings Right Lower Arterial Duplex The distal external iliac artery has biphasic flow. The common femoral artery has biphasic flow. The profunda femoris artery has biphasic flow. The superficial femoral artery has biphasic flow. The popliteal artery has biphasic flow. The anterior tibial artery has biphasic flow. The posterior tibial artery has biphasic flow. The mid peroneal artery has biphasic flow. Left Lower Arterial Duplex The distal external iliac artery has biphasic flow. The common femoral artery has biphasic flow. The profunda femoris artery has biphasic flow. The superficial femoral artery has biphasic flow. The popliteal artery has biphasic flow. The anterior tibial artery has monophasic flow. The posterior tibial artery has biphasic flow. The mid peroneal artery has biphasic flow. Iliac Artery Measurements PSV Rt EIA Prox 66 cm/s Rt EIA Dist 98 cm/s Lt EIA Prox 99 cm/s Lt EIA Dist 118 cm/s Right Lower Arterial Measurements PSV SKIVER SOCK LININGS Prox 125 cm/s SFA Prox 67 cm/s SFA Mid 307 cm/s SFA Dist 219 cm/s Pop Prox 116 cm/s Pop Dist 153 cm/s PHARMACY GRAD INTERN Prox 68 cm/s PHARMACY GRAD INTERN Mid 103 cm/s PHARMACY GRAD INTERN Dist 47 cm/s JUJU Prox 70 cm/s JUJU Mid 55 cm/s JUJU Dist 78 cm/s Peroneal Mid 57 cm/s Left Lower Arterial Measurements PSV SKIVER SOCK LININGS Prox 187 cm/s SFA Prox 80 cm/s SFA Mid 162 cm/s SFA Dist 88 cm/s Pop Prox 115 cm/s Pop Dist 89 cm/s PHARMACY GRAD INTERN Prox 84 cm/s PHARMACY GRAD INTERN Mid 91 cm/s PHARMACY GRAD INTERN Dist 65 cm/s JUJU Prox 18 cm/s JUJU Mid 19 cm/s JUJU Dist 24 cm/s Peroneal Mid 44 cm/s All Reviewers List BECKI Roberts on 07/29/2024 14:58 Signed at 1451 EST * BECKI Roberts - 10/03/2024 1:00 PM EST PATIENT: Ben Stone ENCOUNTER: 10/03/2024 EMRN: [id number] : 1940 PCP: Aretha Pope MD CHIEF COMPLAINT: Peripheral Vascular Disease and Carotid Artery Disease HPI: This 84 y.o. male with history of HTN, HLD, peripheral neuropathy who presents for annual follow upof PAD and carotid disease. Patient is accompanied by his daughter who is assisting with Danish interpretation. Patient is s/p bilateral carotid endarterectomies by Dr. Julien many years ago. He is also s/p angioplasty of his right SFA approximately 5 years ago. He denies any TIA/CVA symptoms since his prior visit including amaurosis fugax, unilateral weakness, paresthesias, slurred speech. He denies claudication, rest pain in toes, ulcers or gangrene. He is on aspirin and a statin. He is a former smoker. PAST MEDICAL HISTORY: Patient Active Problem List Diagnosis Aortic ectasia (CMS/HCC) Bilateral carotid artery stenosis HTN (hypertension) PAD (peripheral artery disease) (CMS/HCC) Hyperlipidemia Vitamin B12 deficiency Diverticulosis GERD (gastroesophageal reflux disease) Benign prostatic hyperplasia Peripheral neuropathy Osteoarthrosis Rosacea PAST SURGICAL HISTORY: Past Surgical History: Procedure Laterality Date CAROTID ENDARTERECTOMY Left PROCEDURE: HISTORICAL CAROTID ENDART HERNIA REPAIR PROCEDURE: REPAIR INGUINAL HERNIA PROSTATECTOMY PROCEDURE: PROSTATECTOMY MEDICATIONS: Outpatient Medications Marked as Taking for the 10/03/24 encounter (Office Visit) with BECKI Roberts Medication Sig Dispense Refill aspirin 81 mg EC tablet Take 1 tablet (81 mg total) by mouth 2 (two) times a day. atorvastatin (LIPITOR) 80 mg tablet Take 1 tablet (80 mg total) by mouth. [id number]-MANGANESE ORAL Take by mouth. lisinopriL (PRINIVIL,ZESTRIL) 10 mg tablet Take by mouth 1 (one) time each day. Take 1 and half tablet daily - Oral metoprolol succinate (TOPROL-XL) 50 mg 24 hr tablet Take 1 tablet (50 mg total) by mouth 1 (one) time each day. omega-3 acid ethyl esters (LOVAZA) 1 gram capsule Take 1 capsule (1,000 mg total) by mouth 1 (one) time each day. pantoprazole (PROTONIX) 40 mg EC tablet Take 1 tablet (40 mg total) by mouth 1 (one) time each day. tamsulosin (FLOMAX) 0.4 mg 24 hr capsule Take 2 capsules (0.8 mg total) by mouth 1 (one) time each day. Take 30 mins after same meal every day ALLERGIES: No Known Allergies SOCIAL HISTORY: Social History Tobacco Use Smoking status: Former Smokeless tobacco: Never Substance Use Topics Alcohol use: Yes Drug use: No FAMILY HISTORY: No family history on file. ROS: GENERAL: No malaise, significant weight loss or fever NECK: No lumps, goiter, pain or significant neck swelling RESPIRATORY: No cough, wheezing or shortness of breath CARDIAC: No chest pain or palpitations GI: No abdominal discomfort MUSCULOSKELETAL: SEE HPI SKIN: No lesions, rash or itching NEURO: No persistent headache, syncope, seizures, weakness or numbness VASCULAR: SEE HPI PHYSICAL EXAM: Vitals: 10/03/24 1306 10/03/24 1309 BP: (!) 150/58 (!) 152/50 BP Location: Left arm Right arm Pulse: 78 Resp: 16 Weight: 70.2 kg (154 lb 12.8 oz) Height: 1.676 m (66 ) General: Alert and oriented x 3, no acute distress, well-nourished HEENT: Normocephalic atraumatic Neck: Well healed bilateral neck incisions. Chest: Respiratory effort normal Cardiac: Regular rate rhythm Abdomen: Soft, nontender, nondistended, no widened aortic pulse Extremities: -Right upper extremity: 2+ radial artery pulses palpable. -Left upper extremity: 2+ radial artery pulses palpable. -Right lower extremity: 2+ femoral artery pulse palpable. No palpable popliteal artery pulse. 2+ DPand PT pulses palpable. No ulcers or gangrene. No edema. -Left lower extremity: 2+ femoral artery pulse palpable. No palpable popliteal artery pulse. 2+ DP and PT pulses palpable. No ulcers or gangrene. No edema. Integumentary: No wounds Neuro: Grossly intact DIAGNOSTIC TESTING: Carotid duplex, [facility],07/30/24: Less than 50% stenosis of bilateral internal carotid arteries. Antegrade flow in bilateral vertebral arteries. Bilateral lower extremity arterial duplex, [facility], 07/29/24: Right: CODIE 0.89. Right mid and distal SFA with 50-99% stenosis. Triple vessel runoff in the right calf. Left: CODIE 0.81. Less than 50% stenosis in all arterial segments of the left lower extremity. Triplevessel runoff in the left calf. Carotid duplex, [facility], 07/30/2023: Less than 50% stenosis of bilateral internal carotid arteries. Antegrade flow in bilateral vertebral arteries. Arterial duplex, [facility], 07/26/2023: Right CODIE is 0.79. There is 20 to 49% stenosis of the right SFA. Three-vessel runoff. On the left, CODIE 0.72. There is 20 to 49% stenosis of the left SFA. Three-vesselrunoff. Carotid duplex 05/19/2022: Less than 50% stenosis of bilateral internal carotid arteries. Right subclavian stenosis. Antegrade flow in bilateral vertebral arteries. Arterial duplex 12/07/2021: - Right lower extremity: CODIE 0.94. Severe stenosis of the right deep and superficial femoral arteries. Moderate stenosis of the popliteal artery. - Left lower extremity: CODIE 0.91. There is moderate stenosis of the external iliac and deep femoralarteries. Severe stenosis of the superficial femoral and anterior tibial arteries. I independently reviewed the studies along with the images. ASSESSMENT: 1. PAD (peripheral artery disease) (CMS/HCC) 2. Bilateral carotid artery stenosis PLAN: 84 y.o. male with PAD s/p right SFA angioplasty and asymptomatic bilateral carotid artery stenosis s/p bilateral carotid endarterectomies. We reviewed carotid duplex which revealed <50% stenosis bilaterally. No intervention needed. Recommend repeat duplex in 1 year. Patient is also asymptomatic in regards to his PAD. We reviewed arterial duplex. No intervention warranted given no claudication,rest pain in toes, ulcers or gangrene. We will repeat imaging in 1 year. Patient will return to theoffice sooner if he develops calf claudication. He will continue aspirin and a statin. We discussed the natural pathophysiology of PAD and carotid disease. I spent 32 minutes in an encounter with this patient, including time spent with patient, chart review, reviewing diagnostic studies, and documentation. documented in this encounter Plan of Treatment Upcoming Encounters Date Type Department Care Team (Late st Contact Info) Description 08/17/2025 9:45 AM EST Ancillary Procedure [facility] [address] [address] 08/18/2025 10:30 AM EST Ancillary Procedure [facility] [address] [place] [id number] 10/16/2025 10:30 AM EST Office Visit Vascular Surgery - [place] [address] [place] [address] Ashutosh Magallanes MD [address] [place] [address] Scheduled Orders Name Type Priority Associated Diagnoses Orde r Schedule Vascular US duplex carotid bilateral Vascular Ultrasound Routine Bilateral carotid artery stenosis Expected: 08/17/2025, Expires: 03/03/2026 Vascular US duplex lower extremity arteries bilateral Vascular Ultrasound Routine PAD (peripheral artery disease) ([facility]) Expected: 08/17/2025, Expires: 03/03/2026 documented as of this encounter Visit Diagnoses Diagnosis PAD (peripheral artery disease) ([facility])- Primary Unspecified peripheral vascular disease Bilateral carotid artery stenosis Occlusion and stenosis of carotid artery without mention of cerebral infarction documented in this encounter Care Teams Decorating Inspector Relationship Specialty Start Date End Date Aretha Pope MD [address] [place] [address] PCP - General Internal Medicine 07/29/24 documented as of this encounter
[2024-10-10 13:57] LABS: Basophils Percent Auto 0.3 % (0-2); Eosinophils Absolute Auto 0.2 X10*3/uL (0.0-0.4); Eosinophils Percent Auto 1.9 % (0-4); Hematocrit 46.1 % (42.0-52.0); Imm Gran Abs Auto 0.02 X10*3/uL (0.00-0.03); Imm Gran Pct Auto 0.2 % (0.0-0.4); Lymphocytes Absolute Auto 1.4 X10*3/uL (1.2-4.9); Lymphocytes Percent Auto 15.9 % (20-40); MANUAL DIFF FLAG NO; Mean Corpuscular HGB Conc 32.5 g/dl (31.0-36.0); Mean Corpuscular Hemoglobin 30.5 pg (27.0-33.0); Mean Corpuscular Volume 93.7 fL (80.0-98.0); Mean Platelet Volume 11.5 fL (9.4-12.4); Monocytes Absolute Auto 0.7 X10*3/uL (0.1-1.2); Monocytes Percent Auto 8.3 % (2-11); Neutrophils Absolute Auto 6.6 x10*3/uL (2.0-8.3); Neutrophils Percent Auto 73.4 % (45-73); Platelet Count 182 X10*3/uL (160-400); Red Blood Count 4.92 X10*6/uL (4.60-5.80); Red Cell Distribution Width 12.7 % (11.0-16.0)
[2024-10-10 14:12] LABS: Estimated Average Glucose 117 mg/dL; Hemoglobin A1C 151.2519 umol/L; Hemoglobin A1c % 5.7 % (<6.0)
[2024-10-10 14:43] LABS: PSA,Total (Free>4and<10) < 0.10 ng/mL (0.00-4.00)
[2024-10-10 14:53] LABS: Folate 17.4 ng/mL (> or = 4.0); Vitamin B12 634 pg/mL (200-900)
[2024-10-10 15:43] LABS: Alanine Aminotransferase < 6 U/L (0-40); Albumin Level 3.8 g/dL (3.5-5.0); Alkaline Phosphatase 83 U/L (39-117); Anion Gap 13 (12-20); Aspartate Amino Transferase 23 U/L (5-37); Bilirubin Total 0.9 mg/dL (0.0-1.0); Blood Urea Nitrogen 15 mg/dL (9-16); Carbon Dioxide 28 mmol/L (22-29); Chloride 110 mmol/L (96-108); Cholesterol 116 mg/dL (<200); Estimated Glomerular Filt Rate > 60; Glucose Fasting 101 mg/dL (60-99); HDL Cholesterol 43 mg/dL (>40); LDL Cholesterol Calculated 61 mg/dL (<100); Potassium 4.4 mmol/L (3.3-5.1); Sodium 147 mmol/L (135-145); Total Protein 7.1 g/dL (6.5-8.0); Triglycerides 62 mg/dL (<150)
== END 2024-10-10 10:04 | disposition home or self-care (01) ==
LOC: HO.HMGCLDS 10:03
PROVIDERS: PCP Internal Medicine; Visit Provider Internal Medicine
DX: I73.9 Peripheral vascular disease, unspecified (principal); C61 Malignant neoplasm of prostate; R73.9 Hyperglycemia, unspecified; I10 Essential (primary) hypertension; E53.8 Deficiency of other specified B group vitamins; Z12.5 Encounter for screening for malignant neoplasm of prostate
CPT/HCPCS: 36415; 80053; 80061; 82607; 82746; 83036; 84153; 85025

== ENCOUNTER 2024-10-15 12:06 | Outpatient (AMB) | payer MEDICARE, SELFPAY ==
--- NOTE | 2024-10-15 12:08 | A.OFFPC_ITS ---
Vital Signs 10/15/24 12:09 Height 5 ft 8.9 in Weight 156 lb 2 oz BMI 23.1 BP 120/70 Blood Pressure Location Rt brachial Position Sitting Respiration 16 Pulse 66 Pulse Source Pulse Oximeter Temp 97.9 F Temp Source Oral Pulse Oximetry (%) 97 Oxygen Delivery Method Room Air Intake Visit Reasons: PE Accompanied by: Spouse Allergies No Known Allergies Allergy (Verified 10/15/24 12:17) Medication List - Last Reconciled 10/15/24 by Aretha Pope MD atorvastatin 80 mg PO DAILY ciprofloxacin-dexamethasone 0.3-0.1 % 4 drps otic (ears) BID lisinopril 10 mg PO DAILY metoprolol succinate ER 50 mg PO DAILY pantoprazole 40 mg PO DAILY tamsulosin 0.4 mg PO BID Tobacco use date assessed: 10/15/24 Fall risk assessment: No Falls in past year Last assessed Fall Risk: 10/15/24 Dental Screening Dental Screen Date: 10/15/24 Did you have a dental visit in the last 12 months?: Yes Did you have a dental problem in the last 6 months where you did not have access to dental care?: No Was dental information given to patient?: Patient has dentist HPI PE HPI Details Patient presents for the physical. Hypertension hyperlipidemia chronic GERD are stable on current medications PFSH Medical History Hyperkalemia Annual physical exam LLQ abdominal pain Abdominal pain Hyperlipidemia DJD (degenerative joint disease) Carotid stenosis, bilateral Prostate cancer Hyperglycemia Surgical History History of esophagogastroduodenoscopy (EGD) H/O colonoscopy H/O prostatectomy Social History Housing: House Alcohol intake: current Alcohol intake frequency: holidays/special occasions o nly Patient Tobacco Use Status: Never used Tobacco e-Cigarette/Vaping Use: Never Used Second Hand Smoke Exposure: No service: No Current occupational status: retired Cognitive needs: No Hearing needs: No Vision needs: Yes Questionnaire PHQ-9 Over the last 2 weeks, how often have you been bothered by any of the following problems? 1. Little interest or pleasure in doing things: not at all 2. Feeling down, depressed, or hopeless: not at all 3. Trouble falling or staying asleep, or sleeping too much: not at all 4. Feeling tired or having little energy: not at all 5. Poor appetite or overeating: not at all 6. Feeling bad about yourself - or that you are a failure or have let yourself or your family down: not at all 7. Trouble concentrating on things, such as reading the newspaper or watching television: not at all 8. Moving or speaking so slowly that other people could have noticed. Or the opposite - being so fidgety or restless that you have been moving around a lot more than usual: not at all 9. Thoughts that you would be better off or of hurting yourself in some way: not at all Total score: 0 Depression Screening Interpretation: Negative Depression Screening Done: Yes 96455 - PHQ-9 Billing: Yes Source: Developed by Drs. Silas Martinez, Gabriela Maria, Jose F Sorenson and colleagues, with an educational kiersten from [employer]. Thrive Questionnaire Date Thrive assessed: 10/15/24 I am a: Patient What is your living situation today?: I have a steady place to live Within the past 12 months, did the food you bought not last and you didn't have the money to get more?: Never true Within the past 12 months, did you worry whether your food would run out before you got money to buy more?: Never true Do you have trouble paying for medicines?: No Do you have trouble getting transportation to medical appointments?: No Do you have trouble paying your heating and electricity bill?: No Do you have trouble taking care of your child, family member or friend?: No Do you have trouble with day-to-day activities such as bathing, preparing meals, shopping, managing finances, etc.?: No Are you currently unemployed and looking for a job?: No Are you interested in more education?: No Please select the resources that you would like help with: None THRIVE Score: 0 AUDIT C Alcohol Use Questionnaire (AUDIT-C) 1. How often do you have a drink containing alcohol?: Never 3. How often do you have six or more drinks on one occasion?: Never Total Score: 0 Score Reviewed/Action Taken: Yes CARMELLA-7 AMB Questionnaire CARMELLA-7 Date CARMELLA - 7 assessed: 10/15/24 Feeling nervous, anxious, or on edge: 0 = Not at all Not being able to stop or control worryin = Not at all Worrying too much about different things: 0 = Not at all Trouble relaxin = Not at all Being so restless that it is hard to sit still: 0 = Not at all Becoming easily annoyed or irritable: 0 = Not at all Feeling afraid as if something awful might happen: 0 = Not at all Total CARMELLA-7 score (0-4 normal; 5-9 mild; 10-14 moderate; 15-21 severe): 0 Source: Developed by Drs. Silas Martinez, Gabriela Maria, Jose F Sorenson and colleagues, with an educational kiersten from [employer]. CARMELLA-7 Assessment Billing CARMELLA-7 Assessment Tool: CARMELLA-7 Assessment 60481 Review of Systems Const All systems reviewed & are unremarkable except as noted in HPI and below Eyes Reports no additional complaints ENT Reports no additional complaints Card Reports no additional complaints Resp Reports no additional complaints GI Reports no additional complaints Reports no additional complaints Physical exam (Primary Care) Vital Signs: Last Vital Signs Temp 97.9 F 10/15/24 12:09 Pulse 66 10/15/24 12:09 Resp 16 10/15/24 12:09 BP 154/90 H 10/15/24 12:09 Pulse Ox 97 10/15/24 12:09 Oxygen Delivery Method Room Air 10/15/24 12:09 BMI result Body Mass Index 23.1 Tobacco/Smoking Status: Tobacco use Status Tobacco use date assessed 10/15/24 10/15/24 12:18 Patient Tobacco Use Status Never used Tobacco 10/15/24 12:08 e-Cigarette/Vaping Use Never Used 10/15/24 12:08 PHQ-9: PHQ-9 Score PHQ-9: Total score 0 10/15/24 12:18 Depression Screening Interpretation: Negative Thrive Assessment: Date of Thrive Assessment Date Thrive assessed 10/15/24 10/15/24 12:18 Const General: no acute distress HENMT Head: Yes normal to inspection Face and sinus: Yes normal facial exam Throat: Yes posterior oropharynx normal Resp Effort & Inspection: normal respiratory effort Auscultation: clear to auscultation bilaterally Cardio Rhythm: regular rhythm Heart sounds: S1 normal heart sound present and S2 normal heart sound present GI Inspection: Yes normal to inspection Palpation (GI): Soft to palpation Percussion: Yes normal to percussion Auscultation: normal bowel sounds Extrem General: Yes no clubbing, cyanosis or edema Coding Level of Care Code Est Pt Prev Care >65y(98288) Diagnoses PVD (peripheral vascular disease) I73.9 Prostate cancer C61 Annual physical exam Z00.00 Essential hypertension I10 Mixed hyperlipidemia E78.2 Vitamin D deficiency E55.9 Hyperglycemia R73.9 Additional Codes CARMELLA-7 Assessment Billing - CARMELLA-7 Assessment Tool: CARMELLA-7 Assessment 58666 ([id number]) PHQ-9 - 56694 - PHQ-9 Billing: Yes ([id number]) Assessment & Plan Assessment & Plan (1) PVD (peripheral vascular disease): Comment: F/U with [facility] annually Code(s): I73.9 - Peripheral vascular disease, unspecified Category: Medical Plan: Follow-up with vascular surgeon continue atorvastatin (2) Prostate cancer: Comment: s/p prostectomy 2001, undetected PSA level Code(s): C61 - Malignant neoplasm of prostate Category: Medical Plan: Undetectable PSA continue to monitor (3) Annual physical exam: Code(s): Z00.00 - Encounter for general adult medical examination without abnormal findings Category: Medical Plan: Well-balanced diet regular physical activity discussed with the patient (4) Essential hypertension: Code(s): I10 - Essential (primary) hypertension Category: Medical Plan: Continue current medications (5) Mixed hyperlipidemia: Code(s): E78.2 - Mixed hyperlipidemia Category: Medical Plan: Continue statin, return for physical in 1 year (6) Vitamin D deficiency: Code(s): E55.9 - Vitamin D deficiency, unspecified Category: Medical Plan: Continue vitamin-D supplement (7) Hyperglycemia: Code(s): R73.9 - Hyperglycemia, unspecified Category: Medical Plan: A1c is 5.7, Continue ADA diet check A1c in 1 yr Orders: Orders Comprehensive [place]. Panel Fast 1 Year C61 - Malignant neoplasm of prostate, E53.8 - Deficiency of other specified B group vitamins, E55.9 - Vitamin D deficiency, unspecified, E78.2 - Mixed hyperlipidemia, I10 - Essential (primary) hypertension, I73.9 - Peripheral vascular disease, unspecified Complete Blood Count Auto Diff 1 Year C61 - Malignant neoplasm of prostate, E53.8 - Deficiency of other specified B group vitamins, E55.9 - Vitamin D deficiency, unspecified, E78.2 - Mixed hyperlipidemia, I10 - Essential (primary) hypertension, I73.9 - Peripheral vascular disease, unspecified Lipid Panel 1 Year C61 - Malignant neoplasm of prostate, E53.8 - Deficiency of other specified B group vitamins, E55.9 - Vitamin D deficiency, unspecified, E78.2 - Mixed hyperlipidemia, I10 - Essential (primary) hypertension, I73.9 - Peripheral vascular disease, unspecified Hemoglobin A1c Today R73.9 - Hyperglycemia, unspecified PSA,Total (Free>4and<10) 1 Year C61 - Malignant neoplasm of prostate, E53.8 - Deficiency of other specified B group vitamins, E55.9 - Vitamin D deficiency, unspecified, E78.2 - Mixed hyperlipidemia, I10 - Essential (primary) hypertension, I73.9 - Peripheral vascular disease, unspecified Vitamin B12 and Folate 1 Year C61 - Malignant neoplasm of prostate, E53.8 - Deficiency of other specified B group vitamins, E55.9 - Vitamin D deficiency, unspecified, E78.2 - Mixed hyperlipidemia, I10 - Essential (primary) hypertension, I73.9 - Peripheral vascular disease, unspecified Vitamin D 25-OH Total 1 Year C61 - Malignant neoplasm of prostate, E53.8 - Deficiency of other specified B group vitamins, E55.9 - Vitamin D deficiency, unspecified, E78.2 - Mixed hyperlipidemia, I10 - Essential (primary) hypertension, I73.9 - Peripheral vascular disease, unspecified
[2024-10-15 12:09] VITALS: BP 120/70; PULSE 66; RESP 16; TEMP 36.6; O2SAT 97; BMI 23.1
--- OUTSIDE RECORDS SUMMARY | 2024-10-15 14:29 | XMS_ITS | Clinical Summary ---
Author Organization [address] [place] [address] Address [address] [place] [address] Phone Care Team Providers Care Retail Merchandising Specialist Name Role Phone Aretha Pope MD Primary Care Provider [phone] Allergies No known active allergies Medications Medication Sig Dispensed Refills Start Date End Date Status atorvastatin (LIPITOR) 80 mg tablet Take 1 tablet (80 mg total) by mouth. 09/14/2015 Active omega-3 acid ethyl esters (LOVAZA) 1 gram capsule Take 1 capsule (1,000 mg total) by mouth 1 (one) time each day. Active lisinopriL (PRINIVIL,ZESTRIL) 10 mg tablet Take by mouth 1 (one) time each day. Take 1 and half tablet daily - Oral 07/30/2018 Active aspirin 81 mg EC tablet Take 1 tablet (81 mg total) by mouth 2 (two) times a day. Active metoprolol succinate (TOPROL-XL) 50 mg 24 hr tablet Take 1 tablet (50 mg total) by mouth 1 (one) time each day. 07/02/2015 Active pantoprazole (PROTONIX) 40 mg EC tablet Take 1 tablet (40 mg total) by mouth 1 (one) time each day. 12/08/2014 Active tamsulosin (FLOMAX) 0.4 mg 24 hr capsule Take 2 capsules (0.8 mg total) by mouth 1 (one) time each day. Take 30 mins after same meal every day 09/14/2014 Active [id number]- MANGANESE ORAL Take by mouth. 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 [address] [place] [address] Miranda Zacarias PA PAD (peripheral artery disease) ([facility]) (Primary Dx); Bilateral carotid artery stenosis 07/30/2024 12:30 PM EST Ancillary Procedure [facility]iology [facility] [address] [address] Bilateral carotid artery stenosis 07/29/2024 12:30 PM EST Ancillary Procedure [facility] [address] [address] PAD (peripheral artery disease) ([facility]) from Last 3 Months Immunizations Name Administration Dates Next Due Influenza trivalent, 0.5mL, preservative free (Fluarix; FluLaval; Fluzone) ages 6mo and older (Afluria) 3 years and older 09/14/2015 Influenza trivalent, with pr eservative (Fluzone; Afluria) 6mo and older 07/16/2014,06/11/2013 Pneumococcal polysaccharide 23 valent (Pneumovax 23) 2yo and older 02/09/2015 Tdap Tetanus diptheria acell ular pertussis (Boostrix; Adacel) 7yo and older 08/05/2014 Zoster Live 08/17/2014 Surgical History Surgery Date Site/Laterality Comments PROSTATECTOMY PROCEDURE: PROSTATECTOMY HERNIA REPAIR PROCEDURE: REPAIR INGUINAL HERNIA CAROTID ENDARTERECTOMY Left PROCEDURE: HISTORICAL CAROTID ENDART Medical History Medical History Date Comments BPH (benign prostatic hypertrophy) 04/04/2011 DX:BPH (benign prostatic hypertrophy); COMMENT: Rominap 2009, combo therapy Pvr 05/29 0cc GERD (gastroesophageal reflu x disease) 04/04/2011 DX:GERD (gastroesophageal re flux disease) HTN (hypertension) 04/04/2011 DX:HTN (hyper tension) Hyperlipidemia 04/04/2011 DX:Hyperlipidemi a H/O prostate cancer 05/11/2015 DX:H/O prost ate cancer Aortic ectasia ([facility]) 05/06/2015 DX:Aort ic ectasia ([facility]); COMMENT: Comments: CXR 07/29/10 Aorta ectatic Benign prostatic hyperplasia 04/04/2011 DX: Benign prostatic hyperplasia; COMMENT: Dima 2009, combo therapy Pvr 05/29 0cc Bilateral carotid artery stenosis 07/29/2018 DX:Bilateral carotid artery stenosis; COMMENT: S/p left cartotid endarterectomy Diverticulosis 06/04/2017 DX:Diverticulosi s Osteoarthrosis 02/10/2016 DX:Osteoarthrosi s PAD (peripheral artery disea se) ([facility]) 07/29/2018 DX:PAD (peripheral artery di sease) ([facility]); COMMENT: S/p RLE-balloon angioplasty Peripheral neuropathy 05/27/2018 DX:Periphe ral neuropathy Rosacea 11/16/2014 DX:Rosacea Vitamin B12 deficiency 05/27/2018 DX:Vitami n B12 deficiency Family History Relation Name Status Comments Brother Alive Father Mother Sister Alive Social History Tobacco Use Types Packs/Day Years [...] file Not on file Not on file Obstetrics History Last Filed Vital Signs Vital Sign Reading [...] Mass Index 24.99 10/03/2024 1:06 PM EST Plan of Treatment Upcoming Encounters Date Type Department Care Team (Late st Contact Info) Description 08/17/2025 9:45 AM EST Ancillary Procedure [facility] [address] [facility] [address] [place] [address] 08/18/2025 10:30 AM EST Ancillary Procedure [facility] - [facility] [address] [facility] [address] [place] [address] 10/16/2025 10:30 AM EST Office Visit Vascular Surgery - [place] [address] [place] [address] Ashutosh Magallanes MD [address] [place] [address] [place] [address] Health Maintenance Due Date Last Done Comments RSV Immunization Patients 60+ Years Old (1 - 1-dose 75+ series) 2016 Pneumococcal Vaccine: 65+ Years (2 of 2 - PCV) 07/03/2021 07/03/2020, 08/11/2019, 09/03/2015, Additional history exists Zoster Vaccines (3 of 3) 09/17/2021 07/23/2021, 09/2013 Cholesterol Screening (Lipid Panel) 08/26/2022 08/05/2014, 08/05/2014 Depression Screening 08/26/2022 Falls Risk Assessment 08/26/2022 Medicare Annual Wellness Visit 08/26/2022 Social Influencers of Health Screening 08/26/2022 Hypertension/CHF/CAD Annual BMP Blood Test 08/30/2022 02/18/2014 COVID-19 Vaccine ( season) 2024 07/23/2021, 11/10/2020, 10/24/2020 Influenza Vaccine (#1) 2024 2, 07/23/2021, 07/03/2020, Additional history exists DTaP,Tdap,and Td Vaccines (2 - Td or Tdap) 08/05/2024 08/05/2014 HIB Vaccines Aged Out No longer eligi ble based on patient's age to complete this topic HPV Vaccines Aged Out No longer eligi ble based on patient's age to complete this topic Hepatitis A Vaccines Aged Out No long er eligible based on patient's age to complete this topic Hepatitis B Vaccines Aged Out No long er eligible based on patient's age to complete this topic IPV Vaccines Aged Out No longer eligi ble based on patient's age to complete this topic MMR Vaccines Aged Out No longer eligi ble based on patient's age to complete this topic Meningococcal ACWY Vaccine Aged Out N o longer eligible based on patient's age to complete this topic RSV Immunization Patients Under 20 months Aged Out No longer eligible based on patient's age to complete this topic Varicella Vaccines Aged Out No longer eligible based on patient's age to complete this topic Procedures Procedure Name Priority Date/Time Associated Diagnosis Comments VAS US DUPLEX CAROTID BILATERAL Routine 07/30/2024 1:00 PM EST Bilateral carotid artery stenosis VAS US DUPLEX LOWER EXT ARTERIES BILAT WITH CODIE Routine 07/29/2024 1:31 PM EST PAD (peripheral artery disease) (CMS/HCC) PROSTATE SPECIFIC ANTIGEN DIAGNOSTIC Routine 07/29/2024 11:44 AM EST Personal history of malignant neoplasm of prostate LIPID PANEL Routine 08/05/2014 ANNUAL BMP BLOOD TEST Routine 02/18/2014 from Last 3 Months or Most Recently Relevant to Health Maintenance Results * Vascular US duplex carotid bilateral (07/30/2024 1:00 PM EST) Left CCA dist melgar 20 cm/s CV VAS LAB Left CCA dist sys 110 cm/s CV VAS LAB LEFT COMMON CAROTID ARTERY MID D 14 cm/s CV VAS LAB LEFT COMMON CAROTID ARTERY MID S 85 cm/s CV VAS LAB Left CCA prox melgar 14 cm/s CV VAS LAB Left CCA prox sys 80 cm/s CV VAS LAB LEFT EXTERNAL CAROTID ARTERY D 21 cm/s CV VAS LAB Left ECA sys 243 cm/s CV VAS LAB Left ICA dist melgar 35 cm/s CV VAS LAB Left ICA dist sys 106 cm/s CV VAS LAB Left ICA mid melgar 31 cm/s CV VAS LAB Left ICA mid sys 107 cm/s CV VAS LAB Left ICA prox melgar 23 cm/s CV VAS LAB Left ICA prox sys 95 cm/s CV VAS LAB Left vertebral sys 54 cm/s CV VAS LAB Right CCA dist melgar 12 cm/s CV VAS LAB Right cca dist sys 85 cm/s CV VAS LAB RIGHT COMMON CAROTID ARTERY MID D 9 cm/s CV VAS LAB RIGHT COMMON CAROTID ARTERY MID S 73 cm/s CV VAS LAB Right CCA prox melgar 7 cm/s CV VAS LAB Right CCA prox sys 81 cm/s CV VAS LAB RIGHT EXTERNAL CAROTID ARTERY D 12 cm/s CV VAS LAB Right eca sys 184 cm/s CV VAS LAB Right ICA dist melgar 18 cm/s CV VAS LAB Right ICA dist sys 72 cm/s CV VAS LAB Right ICA mid melgar 25 cm/s CV VAS LAB Right ICA mid sys 91 cm/s CV VAS LAB Right ICA prox melgar 12 cm/s CV VAS LAB Right ICA prox sys 57 cm/s CV VAS LAB Right vertebral sys 55 cm/s CV VAS LAB Left Prox Subclavian PSV 170 cm/s CV VAS LAB Right Prox Subclavian PSV 135 cm/s CV VAS LAB Right ICA/CCA sys 1.07 CV VAS LAB Left ICA/CCA sys 0.97 CV VAS LAB Anatomical Region Laterality Modality Vascular, Abdomen Ultrasound Narrative 08/13/2024 8:30 AM EST RIGHT. 1. There is atherosclerotic plaque in the [...] document published by [facility] in July 2023. Right Carotid There is evidence of intimal thickening in the CCA. The ICA has mild heterogeneous eccentric plaque. The ECA has mild heterogeneous plaque. Vertebral flow is antegrade. Left Carotid There is evidence of intimal thickening in the CCA. The ICA has mild heterogeneous plaque. The ECA has mild heterogeneous plaque. There are elevated volocities in the left ECA. Vertebral flow is antegrade. Integration Director Details A rosado scale, color and doppler analysis ultrasound was performed. During the study longitudinal and transverse views were obtained. Pulsed wave doppler was performed. Overall the study quality was good. Beverly CONNELL CV VASCULAR PROCEDUR ES * Vascular US duplex lower extremity arteries bilateral with CODIE (07/29/2024 1:31 PM EST) Left Dist External Iliac PSV 118 cm/s CV VAS LAB Left Prox External Iliac PSV 99 cm/s CV VAS LAB Left AT dist sys PSV 24 cm/s CV VAS LAB Left AT mid sys PSV 19 cm/s CV VAS LAB Left AT prox sys PSV 18 cm/s CV VAS LAB Left BRICK PICKER prox sys PSV 187 cm/s CV VAS LAB Left mid peroneal sys PSV 44 cm/s CV VAS LAB Left popliteal dist sys PSV 89 cm/s CV VAS LAB Left popliteal prox sys PSV 115 cm/s CV VAS LAB Left PT dist sys PSV 65 cm/s CV VAS LAB Left PT mid sys PSV 91 cm/s CV VAS LAB Left PT prox sys PSV 84 cm/s CV VAS LAB Left super femoral dist sys PSV 88 cm/s CV VAS LAB Left super femoral mid sys PSV 162 cm/s CV VAS LAB Left super femoral prox sys PSV 80 cm/s CV VAS LAB Right Dist External Iliac PSV 98 cm/s CV VAS LAB Right Prox External Iliac PSV 66 cm/s CV VAS LAB Right AT dist sys PSV 78 cm/s CV VAS LAB Right AT mid sys PSV 55 cm/s CV VAS LAB Right AT prox sys PSV 70 cm/s CV VAS LAB Right BRICK PICKER prox sys PSV 125 cm/s CV VAS LAB Right mid peroneal sys PSV 57 cm/s CV VAS LAB Right popliteal dist sys PSV 153 cm/s CV VAS LAB Right popliteal prox sys PSV 116 cm/s CV VAS LAB Right PT dist sys PSV 47 cm/s CV VAS LAB Right PT mid sys PSV 103 cm/s CV VAS LAB Right PT prox sys PSV 68 cm/s CV VAS LAB Right super femoral dist sys PSV 219 cm/s CV VAS LAB Right super femoral mid sys PSV 307 cm/s CV VAS LAB Right super femoral prox sys PSV 67 cm/s CV VAS LAB Anatomical Region Laterality Modality Vascular, Abdomen Ultrasound Narrative 07/29/2024 2:51 PM EST ?Right mid and distal SFA has 50 to 99% of stenosis. Triple vessel runoff in the right calf. ??Right CODIE 0.89. ?Less than 50% stenosis in all arterial segments of the left lower extremity. Triple vessel runoff in the left calf. ??Left CODIE 0.81. Right Lower Arterial Duplex The distal external [...] The mid peroneal artery has biphasic flow. Integration Director Details A rosado scale, color and doppler analysis ultrasound was performed. During the study longitudinal views were obtained. Pulsed wave doppler was performed. Beverly CONNELL CV VASCULAR PROCEDUR ES * Prostate specific antigen diagnostic (07/29/2024 11:44 AM EST) PSA 0.08 0.00 - 4.00 ng/mL LAB CHEMISTRY METHOD 07/29/2024 3:41 PM EST [facility] Blood Venous blood specimen / Unknown Venipuncture / Unknown 07/29/2024 11:44 AM EST 07/29/2024 11:44 AM EST Narrative [facility] ([facility]) [facility] - 07/29/2024 3:41 PM EST The Siemens Advia Centaur Chemiluminescent Immunoassay is used. Results obtained with different assay methods or kits cannot be used interchangeably. Results cannot be interpreted as absolute evidence of the presence or absence of malignant disease. Elzbieta Mishra NP LAB BLOOD ORDERAB LES [facility] [address] [place] [address], * Lipid panel (08/05/2014) [facility] LDL/HDL Ratio 5 Triglycerides 191 mg/dL Cholesterol 202 mg/dL HDL 42 mg/dL LDL Cholesterol 122 mg/dL Blood Venous blood specimen / Unknown Historical Provider LAB BLOOD ORDERAB LES * Annual BMP Blood Test (02/18/2014) [facility] Annual BMP Blood Test abstracted Historical Provider [facility] E from Last 3 Months or Most Recently Relevant to Health Maintenance Care Teams Retail Merchandising Specialist Relationship Specialty Start Date End Date Aretha Pope MD [address] [place] [address] PCP - General Internal Medicine 07/29/24
--- OUTSIDE RECORDS SUMMARY | 2024-10-15 14:29 | XMS_ITS | Encounter Summary ---
Author Organization [facility] Address [address] [place] [address] Care Team Providers Care Restaurant General Manager Name Role Phone Aretha Pope MD Primary Care Provider [phone] Reason for Referral * Imaging (Routine) - Pending Review Specialty Diagnoses / Procedures Referred By Contac t Referred To Contact Diagnoses PAD (peripheral artery disease) ([facility]) Procedures Vascular US duplex lower extremity arteries bilateral Miranda Zacarias PA [address] [place] [address] [facility] Referral ID Status Reason Start Date Expiration Date V isits Requested Visits Authorized [id number] Pending Review 10/03/2024 10/03/2025 1 1 * Imaging (Routine) - Pending Review Specialty Diagnoses / Procedures Referred By Contac t Referred To Contact Diagnoses Bilateral carotid artery stenosis Procedures Vascular US duplex carotid bilateral Miranda Zacarias PA [address] [place] [address] [facility] Referral ID Status Reason Start Date Expiration Date V isits Requested Visits Authorized [id number] Pending Review 10/03/2024 10/03/2025 1 1 Reason for Visit * Reason Comments Peripheral Vascular Disease Carotid Artery Disease Encounter Details Date Type Department Care Team (Late st Contact Info) Description 10/03/2024 1:00 PM EST Office Visit Vascular Surgery - [place] [address] [place] [address] Miranda Zacarias PA [address] [place] [address] PAD (peripheral artery disease) ([facility]) (Primary Dx); Bilateral carotid artery stenosis [...] Stone Vascular US duplex carotid bilateral Order# [id number] Reading physician: Amos Angeles MD Ordering provider: BECKI Pedraza Study date: 07/30/24 Patient Information Patient Name Ben Stone Legal Sex Male (84 y.o.) Reason for Exam Priority: Routine Bilateral carotid artery stenosis Dx: Bilateral carotid artery stenosis [I65.23 (ICD-10-CM)] PACS Images Show images for Vascular US duplex carotid bilateral Procedure Cashier Receptionist/Clinician: Brittani Tomlin Supporting Staff: Performing Physician/Midlevel: None [...] Roberts on 08/13/2024 11:39 Signed at 0830 [facility] Ben Stone Vascular US duplex lower extremity arteries bilateral with CODIE Order# [id number] Reading physician: Jerry Major MD Ordering provider: BECKI Pedraza Study date: 07/29/24 Patient Information Patient Name Ben Stone Legal Sex Male (84 y.o.) Reason for Exam Priority: Routine PAD (peripheral artery disease) Dx: PAD (peripheral artery disease) ([facility]) [I73.9 (ICD-10-CM)] PACS Images Show images for Vascular US duplex lower extremity arteries bilateral with CODIE Procedure Cashier Receptionist/Clinician: Alicia Wu Supporting Staff: Performing Physician/Midlevel: None [...] 118 cm/s Right Lower Arterial Measurements PSV PLANT OPERATIONS MANAGER Prox 125 cm/s SFA Prox 67 cm/s SFA Mid 307 cm/s SFA Dist 219 cm/s Pop Prox 116 cm/s Pop Dist 153 cm/s COPPER ROLLER HANDLER PRINTING Prox 68 cm/s COPPER ROLLER HANDLER PRINTING Mid 103 cm/s COPPER ROLLER HANDLER PRINTING Dist 47 cm/s JUJU Prox 70 cm/s JUJU Mid 55 cm/s JUJU Dist 78 cm/s Peroneal Mid 57 cm/s Left Lower Arterial Measurements PSV PLANT OPERATIONS MANAGER Prox 187 cm/s SFA Prox 80 cm/s SFA Mid 162 cm/s SFA Dist 88 cm/s Pop Prox 115 cm/s Pop Dist 89 cm/s COPPER ROLLER HANDLER PRINTING Prox 84 cm/s COPPER ROLLER HANDLER PRINTING Mid 91 cm/s COPPER ROLLER HANDLER PRINTING Dist 65 cm/s JUJU Prox 18 cm/s JUJU Mid 19 cm/s JUJU Dist 24 cm/s Peroneal Mid 44 cm/s All Reviewers List BECKI Roberts on 07/29/2024 14:58 Signed at 1451 EST * BECKI Roberts - 10/03/2024 1:00 PM EST PATIENT: Ben Stone ENCOUNTER: 10/03/2024 EMRN: [id number] : 1940 PCP: Aretha Pope MD CHIEF COMPLAINT: Peripheral Vascular Disease and Carotid Artery Disease HPI: This 84 y.o. male with history of HTN, HLD, peripheral neuropathy who presents for annual follow upof PAD and carotid disease. Patient is accompanied by his daughter who is assisting with Romanian interpretation. Patient is s/p bilateral carotid endarterectomies [...] 1 tablet (80 mg total) by mouth. [id number]-MANGANESE ORAL Take by mouth. lisinopriL (PRINIVIL,ZESTRIL) 10 [...] Neuro: Grossly intact DIAGNOSTIC TESTING: Carotid duplex, [facility],07/30/24: Less than 50% stenosis of bilateral internal carotid arteries. Antegrade flow in bilateral vertebral arteries. Bilateral lower extremity arterial duplex, [facility], 07/29/24: Right: CODIE 0.89. Right mid and distal SFA with 50-99% stenosis. Triple vessel runoff in the right calf. Left: CODIE 0.81. Less than 50% stenosis in all arterial segments of the left lower extremity. Triplevessel runoff in the left calf. Carotid duplex, [facility], 07/30/2023: Less than 50% stenosis of bilateral internal carotid arteries. Antegrade flow in bilateral vertebral arteries. Arterial duplex, [facility], 07/26/2023: Right CODIE is 0.79. There [...] Description 08/17/2025 9:45 AM EST Ancillary Procedure [facility] [address] [address] 08/18/2025 10:30 AM EST Ancillary Procedure [facility] [address] [place] [phone] 10/16/2025 10:30 AM EST Office Visit Vascular Surgery - [place] [address] [place] [address] Ashutosh Magallanes MD [address] [place] [address] Scheduled Orders Name Type Priority Associated Diagnoses Orde r Schedule Vascular US duplex carotid bilateral Vascular Ultrasound Routine Bilateral carotid artery stenosis Expected: 08/17/2025, Expires: 03/03/2026 Vascular US duplex lower extremity arteries bilateral Vascular Ultrasound Routine PAD (peripheral artery disease) ([facility]) Expected: 08/17/2025, Expires: 03/03/2026 documented as of this encounter Visit Diagnoses Diagnosis PAD (peripheral artery disease) ([facility])- Primary Unspecified peripheral vascular disease Bilateral carotid artery stenosis Occlusion and stenosis of carotid artery without mention of cerebral infarction documented in this encounter Care Teams Restaurant General Manager Relationship Specialty Start Date End Date Aretha Pope MD [address] [place] [address] PCP - General Internal Medicine 07/29/24 documented as of this encounter
== END 2024-10-15 13:26 | disposition home or self-care (01) ==
PROVIDERS: PCP Internal Medicine; Visit Provider Internal Medicine
DX: I73.9 Peripheral vascular disease, unspecified (principal); C61 Malignant neoplasm of prostate; Z00.00 Encounter for general adult medical examination without abnormal findings; I10 Essential (primary) hypertension; E78.2 Mixed hyperlipidemia; E55.9 Vitamin D deficiency, unspecified; R73.9 Hyperglycemia, unspecified

== ENCOUNTER → 2024-10-15 12:06 | Outpatient (BNVA) | payer MEDICARE, SELFPAY | PROVIDERS: PCP Internal Medicine; Visit Provider Internal Medicine | DX: Z00.00 Encounter for general adult medical examination without abnormal findings (principal); I73.9 Peripheral vascular disease, unspecified; C61 Malignant neoplasm of prostate; I10 Essential (primary) hypertension; E78.2 Mixed hyperlipidemia; E55.9 Vitamin D deficiency, unspecified; R73.9 Hyperglycemia, unspecified | CPT/HCPCS: 96127; 99397 ==